=== PATIENT | female | born 1985 | race African-American/Black ===

== ENCOUNTER 2017-10-12 15:01 | Emergency (ER) | payer MEDICAID ==
[~2017-10-12] VITALS: Ht 175.3 cm; Wt 61.5 kg
[~2017-10-12 15:01] MED LIST: AMOX875T PO; IBUP600T26 PO; ROBA750T3 PO
[2017-10-12 15:02] VITALS: BP 130/70; PULSE 64; RESP 16; TEMP 98.6; O2SAT 100
--- NOTE | 2017-10-12 15:36 | PD ---
HPI Chief Complaint: Abdominal Pain Time Seen by Provider: 15:20 Travel History International Travel<30 days: No Contact w/Intl Traveler<30days: No Traveled to known affect area: No History of Present Illness HPI 32-year-old female presents to the emergency department with complaint of nausea , diarrhea, stomach cramps that started this morning. She was at a work [employer] last night with some cooked foods and doesn't know if that exacerbated her symptoms. Doesn't know if anyone else has similar symptoms. Denies fevers. She reports nausea without vomiting. Denies hematochezia. Denies dysuria. Abdominal pain is intermittent and all over. Rates pain 6/10. Describes it as a grinding, stabbing sensation. Has taken Aleve for symptom management. No known relieving or aggravating factors. Has been tolerating fluids without vomiting. Last menstrual period is unknown. She has an IUD and she doesn't have periods. Denies history of abdominal surgeries. No known allergies. Primary care provider is Dr. Alejandra. Denies significant past medical history. Has no other medical complaints. No other modifying factors or associated signs and symptoms. PFSH Past Medical History Medical History: Denies Significant Hx Hx Anticoagulant Therapy: No Cardiovascular Problems: No Chemotherapy: No Cerebrovascular Accident: No Diabetes: No Diminished Hearing: No Respiratory: No Tetanus Vaccination: < 5 Years ?: Not LMP: IUD : 4 Para: 3 Miscarriage: 1 : 0 Past Surgical History Surgical History: No Previous Surgery Abdominal Surgery: Yes (HERNIA INFANT) Hysterectomy: No Social History Alcohol Use: Yes (EVERY OTHER WEEKEND) Tobacco Use: No Substance Use: No Allergies-Medications (Allergen,Severity, Reaction): Coded Allergies: No Known Allergies (Verified Adverse Reaction, Unknown, 10/12/17) Reported Meds & Prescriptions Reported Meds & Active Scripts Active Zofran Odt (Ondansetron Odt) 4 Mg Tab 4 Mg SL Q8HR PRN Review of Systems Except as stated in HPI: all other systems reviewed are Neg Physical Exam Narrative GENERAL: Well-nourished, well-developed black female patient, in no acute distress; afebrile SKIN: Warm and dry. HEAD: Atraumatic. Normocephalic. EYES: Pupils equal and round. No scleral icterus. No injection or drainage. ENT: Mucosa pink and moist. Airway patent. NECK: Trachea midline. CARDIOVASCULAR: Regular rate and rhythm. No murmur appreciated. RESPIRATORY: No accessory muscle use. Clear to auscultation. Breath sounds equal bilaterally. GASTROINTESTINAL: Abdomen soft, tenderness on palpation to epigastric and right upper quadrant region, nondistended. Hepatic and splenic margins not palpable. Bowel sounds are active 4 quadrants. Nonrigid. No rebound tenderness. No guarding. BACK: No CVA tenderness. MUSCULOSKELETAL: No obvious deformities. No clubbing. No cyanosis. No edema. NEUROLOGICAL: Awake and alert. Oriented 3. No obvious cranial nerve deficits. Motor grossly within normal limits. Normal speech. PSYCHIATRIC: Appropriate mood and affect; insight and judgment normal. Data Data Last Documented VS Vital Signs Date Time Temp Pulse Resp B/P (MAP) Pulse Ox O2 Delivery O2 Flow Rate FiO2 10/12/17 17:45 10/12/17 15:02 98.6 64 16 100 Orders Orders Complete Blood Count With Diff (10/12/17 15:48) Comprehensive Metabolic Panel (10/12/17 15:48) Lipase (10/12/17 15:48) Urinalysis - C+S If Indicated (10/12/17 15:48) Iv Access Insert/Monitor (10/12/17 15:48) Ecg Monitoring (10/12/17 15:48) Oximetry (10/12/17 15:48) Ondansetron Inj (Zofran Inj) (10/12/17 16:00) Sodium Chlor 0.9% 1000 Ml Inj (Ns 1000 M (10/12/17 15:48) Sodium Chloride 0.9% Flush (Ns Flush) (10/12/17 16:00) Ketorolac Inj (Toradol Inj) (10/12/17 16:00) Ed Urine Pregnancytest Poc (10/12/17 15:48) Ketorolac Inj (Toradol Inj) (10/12/17 16:30) Ed Discharge Order (10/12/17 17:31) Labs Laboratory Tests Test 10/12/17 16:20 10/12/17 16:35 White Blood Count 5.3 TH/MM3 Red Blood Count 4.64 MIL/MM3 Hemoglobin 12.4 GM/DL Hematocrit 38.2 % Mean Corpuscular Volume 82.2 FL Mean Corpuscular Hemoglobin 26.7 PG Mean Corpuscular Hemoglobin Concent 32.4 % Red Cell Distribution Width 14.2 % Platelet Count 219 TH/MM3 Mean Platelet Volume 8.9 FL Neutrophils (%) (Auto) 43.5 % Lymphocytes (%) (Auto) 41.1 % Monocytes (%) (Auto) 8.8 % Eosinophils (%) (Auto) 5.5 % Basophils (%) (Auto) 1.1 % Neutrophils # (Auto) 2.3 TH/MM3 Lymphocytes # (Auto) 2.2 TH/MM3 Monocytes # (Auto) 0.5 TH/MM3 Eosinophils # (Auto) 0.3 TH/MM3 Basophils # (Auto) 0.1 TH/MM3 CBC Comment DIFF FINAL Differential Comment Blood Urea Nitrogen 6 MG/DL Creatinine 0.75 MG/DL Random Glucose 75 MG/DL Total Protein 7.6 GM/DL Albumin 4.2 GM/DL Calcium Level 8.7 MG/DL Alkaline Phosphatase 59 U/L Aspartate Amino Transf (AST/SGOT) 13 U/L Alanine Aminotransferase (ALT/SGPT) 13 U/L Total Bilirubin 0.4 MG/DL Sodium Level 139 MEQ/L Potassium Level 3.5 MEQ/L Chloride Level 107 MEQ/L Carbon Dioxide Level 25.3 MEQ/L Anion Gap 7 MEQ/L Estimat Glomerular Filtration Rate 107 ML/MIN Lipase 55 U/L Urine Color YELLOW Urine Turbidity HAZY Urine pH 7.5 Urine Specific [place] 1.021 Urine Protein TRACE mg/dL Urine Glucose (UA) NEG mg/dL Urine Ketones TRACE mg/dL Urine Occult Blood NEG Urine Nitrite NEG Urine Bilirubin NEG Urine Urobilinogen 2.0 MG/DL Urine Leukocyte Esterase TRACE Urine RBC 1 /hpf Urine WBC 2 /hpf Urine Squamous Epithelial Cells 8 /hpf Urine Mucus MOD /lpf Microscopic Urinalysis Comment CULT NOT INDICATED MDM Medical Decision Making Medical Screen Exam Complete: Yes Emergency Medical Condition: Yes Medical Record Reviewed: Yes Differential Diagnosis Gastroenteritis, gastritis, cholecystitis Narrative Course 32-year-old female with epigastric/right upper quadrant abdominal pain, nausea and diarrhea since this morning. She did eat some cooked foods at a work [employer] last night and doesn't know if this contributed to her symptoms. I spoke with Dr. Sanchez, my attending physician, and she recommends CBC, CMP, lipase, fluid bolus, Zofran. Toradol, Urinalysis and UPT ordered also. 1730: On reexamination the patient reports feeling better. She denies abdominal cramping at this time. Denies nausea. Has tolerated Gatorade without continued nausea or vomiting. Zofran prescribed for home. Instructed patient to follow up with primary care provider. Patient verbalizes understanding and agreement with treatment plan. Patient is medically cleared and stable for discharge. Discussed reasons to return to the emergency department. Patient agrees with treatment plan. The patients vital signs are stable and the patient is stable for outpatient follow-up and treatment. Patient discharged home, stable and in no acute distress. Diagnosis Primary Impression: Abdominal cramping Additional Impression: Diarrhea Qualified Codes: R19.7 - Diarrhea, unspecified Referrals: Primary Care Physician Patient Instructions: Abdominal Pain (ED), Acute Diarrhea (ED), General Instructions Additional Instructions: Take Zofran as prescribed for nausea/vomiting Increase fluid intake, starting with clear fluids; advancing to a bland diet as tolerated [place] diet to include crackers, rice, toast, bananas as tolerated, advancing slowly to regular diet Follow-up primary care provider in next 1-2 days Return to emergency department immediately, particularly if develop bloody or black stool, can't keep fluids down, develops disorientation or confusion Med/Other Pt SpecificInfo: Prescription(s) given Scripts Ondansetron Odt (Zofran Odt) 4 Mg Tab 4 MG SL Q8HR Y for Nausea/Vomiting, #6 TAB 0 Refills Prov: Monica Chavarria 10/12/17 Disposition: 01 DISCHARGE HOME Condition: Stable Monica Chavarria Oct 12, 2017 15:36
[2017-10-12] MEDS ORDERED: SODIUM CHLOR 0.9% 1000 ML INJ 1,000 ML IV SCH (15:48)
[2017-10-12] MEDS ORDERED: KETOROLAC TROMETHAMINE 60 MG/2 ML (IM) VIAL IM ONE (16:00)
[2017-10-12] MEDS ORDERED: ONDANSETRON HCL 4 MG/2 ML VIAL IVP ONE (16:00)
[2017-10-12] MEDS ORDERED: SODIUM CHLORIDE 0.9% FLUSH 10 ML FLUSH IV FLUSH PRN (16:00)
[2017-10-12] MEDS ORDERED: KETOROLAC TROMETHAMINE 30 MG/ML (IVP) VIAL IV PUSH ONE (16:30)
[2017-10-12 17:02] LABS: AUTOMATED NEUTROPHIL # 2.3 TH/MM3 (1.8-7.7); BASOPHIL # 0.1 TH/MM3 (0-0.2); BASOPHIL % 1.1 % (0.0-2.0); EOSINOPHIL # 0.3 TH/MM3 (0-0.4); EOSINOPHIL % 5.5 % (0.0-4.0); HEMATOCRIT 38.2 % (35.0-46.0); HEMOGLOBIN 12.4 GM/DL (11.6-15.3); LYMPH % 41.1 % (9.0-44.0); LYMPHOCYTE # 2.2 TH/MM3 (1.0-4.8); MEAN CELL VOLUME 82.2 FL (80.0-100.0); MEAN CORPUSCULAR HEMOGLOBIN 26.7 PG (27.0-34.0); MEAN CORPUSCULAR HGB CONC 32.4 % (32.0-36.0); MEAN PLATELET VOLUME 8.9 FL (7.0-11.0); MONO % 8.8 % (0.0-8.0); MONOCYTE # 0.5 TH/MM3 (0-0.9); NEUT % 43.5 % (16.0-70.0); PLATELET COUNT 219 TH/MM3 (150-450); RED BLOOD COUNT 4.64 MIL/MM3 (4.00-5.30); RED CELL DISTRIBUTION WIDTH 14.2 % (11.6-17.2); WHITE BLOOD COUNT 5.3 TH/MM3 (4.0-11.0)
[2017-10-12 17:09] LABS: BILIRUBIN, URINE NEG (NEG); BLOOD, URINE NEG (NEG); GLUCOSE,URINE NEG (NEG); KETONE, URINE TRACE mg/dL (NEG); MUCUS URINE MOD /lpf (OCC); NITRITE,URINE NEG (NEG); PH, URINE 7.5 (5.0-8.5); SQUAMOUS EPITHELIAL CELL URINE 8 /hpf (0-5); URINE COLOR YELLOW (YELLW/STRAW); URINE LEUKOCYTE ESTERASE TRACE (NEG)
[2017-10-12 17:14] LABS: ALBUMIN 4.2 GM/DL (3.4-5.0); AST (GOT) 13 U/L (15-37); BICARBONATE 25.3 MEQ/L (21.0-32.0); BLOOD UREA NITROGEN 6 MG/DL (7-18); CALCIUM 8.7 MG/DL (8.5-10.1); CHLORIDE 107 MEQ/L (98-107); CREATININE 0.75 MG/DL (0.50-1.00); GLOMERULAR FILTRATION RATE 107 ML/MIN (>89); GLUCOSE,RANDOM 75 MG/DL (74-106); LIPASE 55 U/L (73-393); SODIUM (NA) 139 MEQ/L (136-145)
[2017-10-12 17:15] LABS: ALT (GPT) 13 U/L (10-53)
[2017-10-12 17:18] LABS: ALKALINE PHOSPHATASE 59 U/L (45-117); TOTAL BILIRUBIN ADULT 0.4 MG/DL (0.2-1.0); TOTAL PROTEIN 7.6 GM/DL (6.4-8.2)
[2017-10-12] MEDS ORDERED: ZOFR4TAB3 SL (17:29)
== END 2017-10-12 18:14 | disposition home or self-care (01) ==
LOC: NEPD 15:01
DX: R10.13 Epigastric pain (principal); R10.11 Right upper quadrant pain; R19.7 Diarrhea, unspecified; R11.0 Nausea
CPT/HCPCS: 80053; 81001; 83690; 84703; 85025; 96361; 96374; 96375; 99284; J1885; J2405; J7030